=== PATIENT | male | born 1995 | race African-American/Black ===

== ENCOUNTER 2018-02-26 16:50 | Inpatient (IN) | END 2018-02-28 20:35 | disposition home or self-care (01) | DRG 440 ==

== ENCOUNTER 2018-04-09 07:40 | Inpatient (IN) | END 2018-04-11 18:42 | disposition home or self-care (01) | DRG 439 ==

== ENCOUNTER 2019-05-29 22:23 | Emergency (ER) | payer OTHER ==
[~2019-05-29] VITALS: Ht 182.9 cm; Wt 78.7 kg
[~2019-05-29 22:23] MED LIST: CEPH-443 PO; HYDR-4011 PO; IBUP-1542 PO
[2019-05-29 22:28] VITALS: Ht 182.9 cm; Wt 78.7 kg
[2019-05-30] MEDS ORDERED: LIDOCAINE 1% (MPF) 5 ML VIAL INFIL ONE (01:30)
[2019-05-30] MEDS ORDERED: CEFTRIAXONE 500 MG INJ IM ONE (03:30)
[2019-05-30] MEDS ORDERED: CEPH-443 PO (03:51)
[2019-05-30] MEDS ORDERED: ACET325T33 PO (03:52)
[2019-05-30] MEDS ORDERED: BACITRACIN 0.9 GM OINT TOP ONE (04:00)
[2019-05-30 04:11] VITALS: BP 121/75; PULSE 65; RESP 18
--- NOTE | 2019-05-30 05:15 | ERD ---
ER Documentation Chief Complaint Chief Complaint LAC TO RIGHT 3RD DIGIT HPI History of Present Illness: 23-year-old male who denies a past medical history coming today due to complaint to laceration to third digit of right hand. Patient reports injury occurred at approximately 6 PM yesterday. Patient reports a knife was in the sink and he did not see it in, laceration occurred. Patient reports that he had this injury while at work at [employer] and there is possible contamination of wound due to seafood and raw meat. Reports his last tetanus was 2 months ago. At home pharmacological/nonpharmacological treatment for symptoms: Reports using a disinfectant in the first-aid kit at work to clean wound Denies social concerns; Denies recent foreign travel ROS All systems reviewed and are negative except as per history of present illness. Medications Home Meds Active Scripts Acetaminophen* (Tylenol*) 325 Mg Tablet, 2 TAB PO Q6 PRN for PAIN AND OR ELEVATED TEMP, #20 TAB Prov:BABS OH NP 05/30/19 Cephalexin* (Keflex*) 500 Mg Capsule, 500 MG PO BID for INFECTION PREVENTION for 5 Days, CAP Prov:BABS OH NP 05/30/19 Ibuprofen* (Motrin*) 600 Mg Tab, 600 MG PO Q6H PRN for PAIN AND OR ELEVATED TEMP, #30 TAB Prov:WENDIE TAN NP 12/06/18 Cephalexin* (Keflex*) 500 Mg Capsule, 500 MG PO QID for 5 Days, CAP Prov:WENDIE TAN NP 12/06/18 Hydrocodone/Acetaminophen ([place] 5-325 Tablet) 1 Each Tablet, 1 EACH PO Q8, #10 TAB Prov:BRINDA RICHARDSON MD 04/11/18 Allergies Allergies: Coded Allergies: No Known Allergy (Unverified , 12/06/18) PMhx/Soc Medical and Surgical Hx: pt denies Medical Hx, pt denies Surgical Hx History of Surgery: Yes (Right hand surgery 3yrs ago) Anesthesia Reaction: No Hx Neurological Disorder: No Hx Respiratory Disorders: No Hx Cardiac Disorders: No Hx Psychiatric Problems: Yes (Depression) Hx Miscellaneous Medical Probl: No Hx Alcohol Use: No Hx Substance Use: No Hx Tobacco Use: No FmHx Family History: No diabetes, No coronary disease Physical Exam Vitals Vital Signs Date Temp Pulse Resp B/P (MAP) Pulse Ox O2 O2 Flow FiO2 Time Delivery Rate 05/30/19 97.9 65 18 121/75 100 Room Air 04:11 (90) 05/29/19 99.6 100 18 130/71 96 22:28 (90) Physical Exam Const: No acute distress, afebrile Head: Atraumatic Eyes: Normal Conjunctiva ENT: Normal External Ears, Nose and Mouth. Neck: Full range of motion. No meningismus. Resp: Clear to auscultation bilaterally Cardio: Regular rate and rhythm, no murmurs Abd: Soft, non tender, non distended. No guarding, no masses, no rigidity Skin: No petechiae or rashes; 2 similar laceration noted to palmar aspect of third digit of right hand, bleeding controlled. Patient able to bend finger Back: No midline or flank tenderness Ext: No cyanosis, or edema Neur: Awake and alert x3, speaking in clear sentences, no focal deficits or fa cial asymmetry Psych: Normal Mood and Affect Results 24 hrs Current Medications Medications Dose Sig/Virginie Start Time Status Last (Trade) Ordered Route PRN Stop Time Admin Dose Reason Admin Lidocaine 5 ml ONCE ONCE 05/30/19 DC (Xylocaine INFIL 01:30 05/30/19 1% (Mpf)) 01:31 Ceftriaxone 630 mg ONCE ONCE 05/30/19 DC Sodium IM 03:30 05/30/19 (Rocephin) 03:49 Bacitracin 1 applic ONCE ONCE 05/30/19 DC (Bacitracin TOP 04:00 05/30/19 Oint (Ud)) 04:01 Procedures/MDM ED COURSE: ED course includes a thorough examination and history. The patient was stable throughout ED course. I kept the patient and/or family informed of laboratory and diagnostic imaging results throughout the ED course. LABS: None MEDICATIONS GIVEN IN ER: Lidocaine Patient tolerated medication well with no adverse reactions. Patient reported improvement in pain. DIAGNOSTIC IMAGING: Read by radiologist. None PROCEDURES: Laceration Repair by me: Anesthesia: 1% lidocaine locally Location: Third digit of right hand Tendon/Joint/Nerves: No injury Foreign body: None detected after copious irrigation and exploration Technique: Simple Interrupted Sutures, 4 sutures, 5-0 Prolene Complexity: No subcutaneous sutures/mucosal repair/edge excision Post Closure Length: 2 cm Patient's bleeding was easily controlled in the department and there is no indication of anemia. No evidence of compartment syndrome, neurologic injury, vascular injury, open joint, tendon laceration, or foreign body. Patient is appropriate for outpatient follow up. 48 hour wound check. Scar minimization instructions given. MEDICAL DECISION MAKING: Low suspicion for life-threatening medical emergency. Low suspicion for neurovascular compromise. Low suspicion for tendon injury. Otherwise healthy patient presenting with constellation of symptoms likely representing laceration of finger as characterized by history, physical exam findings. Patient reassessment @ 0400: Wound care complete. Finger wrapped with bacitracin. Plan of care for Keflex for prophylactic infection prevention due to wound contamination. Patient hemodynamically stable. No respiratory distress, otherwise relatively well appearing and nontoxic. Disposition given. Patient educated on diagnoses, prescriptions, follow-up care, return precautions. Strict return precautions given for worsening condition; questions answered discharge. Patient verbalizes understanding of discharge instructions. PRESCRIPTIONS FOR HOME: K flex DISPOSITION: DISCHARGE At this time, patient is stable for discharge and outpatient management. I have instructed the patient to follow-up with his/her primary care physician in 1-2 days. I have discussed with the patient the possibility of needing to see a specialist for further workup and imaging studies if symptoms persist. I have instructed the patient to promptly return to the ER for any new or worsening symptoms including increased pain, fever, nausea, vomiting, weakness or LOC. The patient and/or family expressed understanding of and agreement with this plan. All questions were answered. Home care instructions were provided. DISCLAIMER: Inadvertent spelling and grammatical errors are likely due to EHR/dictation software use and do not reflect on the overall quality of patient care. Also, please note that the electronic time recorded on this note does not necessarily reflect the actual time of the patient encounter. Departure Diagnosis: Primary Impression: Laceration of finger Condition: Stable Patient Instructions: Laceration, Hand Referrals: COMMUNITY CLINICS YOU HAVE RECEIVED A MEDICAL SCREENING EXAM AND THE RESULTS INDICATE THAT YOU DO NOT HAVE A CONDITION THAT REQUIRES URGENT TREATMENT IN THE EMERGENCY DEPARTMENT. FURTHER EVALUATION AND TREATMENT OF YOUR CONDITION CAN WAIT UNTIL YOU ARE SEEN IN YOUR DOCTORS OFFICE WITHIN THE NEXT 1-2 DAYS. IT IS YOUR RESPONSIBILITY TO MAKE AN APPOINTMENT FOR FOLOW-UP CARE. IF YOU HAVE A PRIMARY DOCTOR --you should call your primary doctor and schedule an appointment IF YOU DO NOT HAVE A PRIMARY DOCTOR YOU CAN CALL OUR PHYSICIAN REFERRAL HOTLINE AT IF YOU CAN NOT AFFORD TO SEE A PHYSICIAN YOU CAN CHOSE FROM THE FOLLOWING [facility] [address] [facility] [address] [facility] [address] [facility] [address] [facility] [address] [facility]. [facility] [address] [facility]. [facility] YOU HAVE RECEIVED A MEDICAL SCREENING EXAM AND THE RESULTS INDICATE THAT YOU DO NOT HAVE A CONDITION THAT REQUIRES URGENT TREATMENT IN THE EMERGENCY DEPARTMENT. FURTHER EVALUATION AND TREATMENT OF YOUR CONDITION CAN WAIT UNTIL YOU ARE SEEN IN YOUR DOCTORS OFFICE WITHIN THE NEXT 1-2 DAYS. IT IS YOUR RESPONSIBILITY TO MAKE AN APPOINTMENT FOR FOLOW-UP CARE. IF YOU HAVE A PRIMARY DOCTOR --you should call your primary doctor and schedule and appointment IF YOU DO NOT HAVE A PRIMARY DOCTOR YOU CAN CALL OUR PHYSICIAN REFERRAL HOTLINE AT . IF YOU CAN NOT AFFORD TO SEE A PHYSICIAN YOU CAN CHOSE FROM THE FOLLOWING [facility] INSTITUTIONS: [facility] [address] [place] [address] [facility] [address] [place] [address] [facility] [address] [place] [address] Additional Instructions: Thank you very much for allowing us to participate in your care. Your health and safety is our top priority at [facility]. It is important to read all discharge instructions and education provided in your discharge packet. *Wound recheck in 2 to 3 days to ensure infection is not present* *Suture removal in 7 to 10 days* Call your primary care doctor TOMORROW for an appointment during the next 2-4 days and bring all the information and medications prescribed. Have prescriptions filled and follow precisely the directions on the label. -Cephalexin is an antibiotic; take this medication every day as listed on your prescription. You must complete the entire course of treatment that is listed on your prescription this is very important because it takes a certain number of days to kill the bacteria that is causing the infection. If the symptoms get worse and your provider is unavailable, return to the Emergency Department immediately. BABS OH NP May 30, 2019 05:15
== END 2019-05-30 04:13 | disposition home or self-care (01) ==
LOC: FTE 22:23
DX: S61.212A Laceration without foreign body of right middle finger without damage to nail, initial encounter (principal); W26.0XXA Contact with knife, initial encounter; Y92.9 Unspecified place or not applicable